=== PATIENT | female | born 1990 | race Native Hawaiian/Other Pacific Islander ===

== ENCOUNTER 2017-02-17 08:00 | Outpatient (CLI) | payer MEDICAID | END 2017-02-17 23:59 | disposition home or self-care (01) | DX: O12.13 Gestational proteinuria, third trimester (principal) ==

== ENCOUNTER 2017-06-13 21:00 | Emergency (ER) | payer MEDICAID ==
[2017-06-13] MEDS ORDERED: SODIUM CHLORIDE 0.9% 1,000 ML IV ONE (22:20)
[2017-06-13 22:41] LABS: BASOPHILS % (AUTO) 0.1 %; EOSINOPHILS # (AUTO) 0.1 10^3/uL (0.0-0.7); EOSINOPHILS % (AUTO) 1.4 %; HCT - HEMATOCRIT 35.1 % (37.0-47.0); HGB - HEMOGLOBIN 11.2 g/dL (12.0-16.0); LYMPHOCYTES # (AUTO) 1.5 10^3/uL (1.5-3.5); LYMPHOCYTES % (AUTO) 20.3 %; MEAN CORPUSCULAR HEMOGLOBIN 25.8 pg (27.0-31.0); MEAN CORPUSCULAR VOLUME 80.8 fL (81.0-99.0); MEAN PLATELET VOLUME 7.8 fL (7.9-10.8); MONOCYTES # (AUTO) 0.4 10^3/uL (0.0-1.0); MONOCYTES % (AUTO) 5.7 %; NEUTROPHILS # (AUTO) 5.5 10^3/uL (1.5-6.6); NEUTROPHILS % (AUTO) 72.5 %; RED BLOOD COUNT 4.34 10^6/uL (4.20-5.40); RED CELL DISTRIBUTION WIDTH 14.4 % (12.0-15.0); UNCORRECTED WHITE BLOOD COUNT 7.6 x10^3/uL; WHITE BLOOD COUNT 7.6 x10^3/uL (4.8-10.8)
--- NOTE | 2017-06-13 22:45 | ED Physician Documentation ---
History of Present Illness - Stated complaint Stated Complaint: FAINT/VISION ISSUES - Chief complaint Chief Complaint: General - History obtained from History obtained from: Patient - Additonal information Additional information: Patient is a 26-year-old female without any past medical history who presents with a complaint of Lightheadedness, occasional right arm pain, and numbness in her hands bilaterally. She says she often has a history of right-sided arm pain is been present for many years. She says she is otherwise healthy and has no cardiac, pulmonary gastrointestinal or other problems. There is no history of venous thromboembolism. She has not had any long car drive recently. She denies any pain in her extremities. The symptoms seem to come and go and are not associated with anything that she is aware of. She denies any feeling of anxiety or panic. She denies any lower urinary symptoms and has not had any constipation or diarrhea. She just started her menses and denies that she could be . She had a similar episode like this during where she nearly passed out. Review of systems: For pertinent positive and negatives in the review of systems please see history of present illness. Otherwise all other systems have been reviewed and are negative. Dragon disclaimer: Parts of this medical record were created using voice recognition technology. Because of the inherent limitations of this system occasional same sounding word substitutions do occur and persist despite proofreading. Please read the document for context. Review of Systems Ten Systems: 10 systems reviewed and negative Constitutional: denies: Fever, Chills, Myalgias Eyes: denies: Loss of vision, Decreased vision, Photophobia Ears: denies: Loss of hearing Cardiac: reports: Chest pain / pressure. denies: Palpitations, Pedal edema, Calf pain Respiratory: denies: Dyspnea, Cough, Hemoptysis, Wheezing GI: denies: Abdominal Pain, Abdominal Swelling, Nausea, Vomiting : denies: Dysuria, Frequency Neurologic: reports: Near syncope PD PAST MEDICAL HISTORY - Past Surgical History Past Surgical History: No - Present Medications Home Medications: Ambulatory Orders Medication Instructions Recorded Confirmed Amoxicillin 500 mg PO TID 7 Days 05/31/14 L. Rhamnosus GG/Inulin [Culturelle 1 each PO DAILY #14 cap.sprink 05/31/14 Capsule] - Allergies Allergies/Adverse Reactions: Allergies Allergy/AdvReac Type Severity Reaction Status Date / Time latex Allergy Rash Verified 05/31/14 09:45 - Social History Does the pt smoke?: Yes Smoking Status: Current every day smoker Does the pt drink ETOH?: No Does the pt have substance abuse?: No - Immunizations Immunizations are current?: Yes PD ED PE NORMAL - General General: Alert and oriented X 3, No acute distress, Well developed/nourished - HEENT HEENT: Atraumatic, PERRL, EOMI - Neck Neck: Supple, no meningeal sign - Cardiac Cardiac: RRR, No murmur, No gallop, No rub - Respiratory Respiratory: No respiratory distress, Clear bilaterally - Abdomen Abdomen: Normal bowel sounds, Soft, Non tender, Non distended - Back Back: No CVA TTP, No spinal TTP - Derm Derm: Normal color, Warm and dry, No rash, Other - Extremities Extremities: Normal ROM s pain - Neuro Neuro: Alert and oriented X 3 - Psych Psych: Normal mood, Normal affect Results - Vitals Vitals: Vital Signs - 24 hr 06/13/17 21:06 Heart Rate 81 Respiratory 14 Rate Blood Pressure 118/84 H O2 Saturation 97 Oxygen O2 Source Room air - Labs Labs: Laboratory Tests 06/13/17 06/13/17 06/13/17 21:31 22:33 22:33 WBC 7.6 RBC 4.34 Hgb 11.2 L Hct 35.1 L MCV 80.8 L MCH 25.8 L MCHC 32.0 RDW 14.4 Plt Count 227 MPV 7.8 L Neut # 5.5 Lymph # 1.5 [facility] # 0.4 Eos # 0.1 Baso # 0.0 Absolute Nucleated RBC 0.00 Nucleated RBCs 0.0 D-Dimer < 200.0 L Sodium Potassium Chloride Carbon Dioxide Anion Gap BUN Creatinine Estimated GFR (MDRD) Glucose POC Whole Bld Glucose 107 H Calcium Total Bilirubin AST ALT Alkaline Phosphatase Troponin I Total Protein Albumin Globulin Albumin/Globulin Ratio Lipase HCG, Quant Urine Color Urine Clarity Urine pH Ur Specific Alpine Urine Protein Urine Glucose (UA) Urine Ketones Urine Occult Blood Urine Nitrite Urine Bilirubin Urine Urobilinogen Ur Leukocyte Esterase Urine RBC Urine WBC Ur Squamous Epith Cells Urine Bacteria Ur Microscopic Review Urine Culture Comments 06/13/17 06/13/17 06/13/17 22:33 22:33 22:33 WBC RBC Hgb Hct MCV MCH MCHC RDW Plt Count MPV Neut # Lymph # [facility] # Eos # Baso # Absolute Nucleated RBC Nucleated RBCs D-Dimer Sodium 138 Potassium 3.5 Chloride 104 Carbon Dioxide 26 Anion Gap 8.0 BUN 10 Creatinine 0.8 Estimated GFR (MDRD) 87 L Glucose 96 POC Whole Bld Glucose Calcium 9.1 Total Bilirubin 0.6 AST 15 ALT 19 Alkaline Phosphatase 53 Troponin I < 0.04 Total Protein 7.7 Albumin 4.2 Globulin 3.5 Albumin/Globulin Ratio 1.2 Lipase 30 HCG, Quant < 0.60 Urine Color Urine Clarity Urine pH Ur Specific Alpine Urine Protein Urine Glucose (UA) Urine Ketones Urine Occult Blood Urine Nitrite Urine Bilirubin Urine Urobilinogen Ur Leukocyte Esterase Urine RBC Urine WBC Ur Squamous Epith Cells Urine Bacteria Ur Microscopic Review Urine Culture Comments 06/14/17 00:19 WBC RBC Hgb Hct MCV MCH MCHC RDW Plt Count MPV Neut # Lymph # [facility] # Eos # Baso # Absolute Nucleated RBC Nucleated RBCs D-Dimer Sodium Potassium Chloride Carbon Dioxide Anion Gap BUN Creatinine Estimated GFR (MDRD) Glucose POC Whole Bld Glucose Calcium Total Bilirubin AST ALT Alkaline Phosphatase Troponin I Total Protein Albumin Globulin Albumin/Globulin Ratio Lipase HCG, Quant Urine Color YELLOW Urine Clarity CLEAR Urine pH 5.5 Ur Specific Alpine >=1.030 H Urine Protein NEGATIVE Urine Glucose (UA) NEGATIVE Urine Ketones NEGATIVE Urine Occult Blood LARGE H Urine Nitrite NEGATIVE Urine Bilirubin NEGATIVE Urine Urobilinogen 0.2 (NORMAL) Ur Leukocyte Esterase NEGATIVE Urine RBC TNTC H Urine WBC 0-3 Ur Squamous Epith Cells NONE SEEN Urine Bacteria None Seen Ur Microscopic Review INDICATED Urine Culture Comments NOT INDICATED PD MEDICAL DECISION MAKING - ED course Complexity details: reviewed old records ED course: She is a healthy well-appearing young female who presents with right arm pain, mild dizziness, and occasional chest pain. Some of these symptoms have been present off and on for many years. She is not high risk for venous thromboembolism however we did do a d-dimer is negative so this possible diagnosis is been ruled out. Her EKG shows normal sinus rhythm with a normal ME , QRS and QT interval there is no ST elevation, depression or T-wave inversion. Patient's chest x-ray shows no acute intrathoracic disease and routine blood work was done and is normal. Her urine shows mild concentration which is treated with a liter of normal saline. At this point in time I have no clear- cut explanation for her symptoms however I think she is very low risk for ACS, PE and other simple problems have been ruled out as well. There is no evidence of referred pain into the chest from her abdomen. She is completely soft and nontender in the right upper quadrant. Disposition: To home Clinical impression: 1. Chest pain and right arm pain with dizziness-low risk ACS, ruled out for venous thromboembolism Departure - Departure Disposition: 01 Home, Self Care Clinical Impression: Chest pain in adult Condition: Good Instructions: ED Chest Pain NonCardiac Follow-Up: [facility] [Provider Group]
[2017-06-13 23:01] LABS: ALBUMIN/GLOBULIN RATIO 1.2 (1.0-2.2); BILIRUBIN,TOTAL 0.6 mg/dL (0.2-1.0); CALCIUM 9.1 mg/dL (8.5-10.3); CREATININE 0.8 mg/dL (0.4-1.0); POTASSIUM 3.5 mmol/L (3.5-5.0); TOTAL PROTEIN 7.7 g/dL (6.7-8.2)
--- NOTE | 2017-06-13 23:06 | XRAY Preliminary Report ---
Exam: XR Chest 2 View PA/LAT IMPRESSION: Stable normal appearance of the chest. [facility] SITE ID: [id number]
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
[2017-06-14 00:43] LABS: BILIRUBIN,URINE NEGATIVE (NEGATIVE); PH,URINE 5.5 PH (5.0-7.5)
[2017-06-14 00:58] LABS: UA w/ MICROSCOPIC CHARGE YES; UR CULTURE IF IND NOT INDICATED; WBC,URINE 0-3 /HPF (0-5)
[2017-06-14 01:47] VITALS: BP 122/75
== END 2017-06-14 01:46 | disposition home or self-care (01) ==
LOC: ED 21:00
DX: R07.9 Chest pain, unspecified (principal); M79.601 Pain in right arm; R42 Dizziness and giddiness; F17.200 Nicotine dependence, unspecified, uncomplicated
CPT/HCPCS: 36415; 71020; 80053; 81001; 81003; 83690; 84484; 84702; 85025; 85379; 87086; 93005; 99283; 99285

== ENCOUNTER 2018-01-07 21:50 | Outpatient (CLI) | payer MEDICAID | END 2018-01-07 21:51 | disposition critical access hospital (66) | LOC: EMS 21:50 | PROVIDERS: ATTEND Surgery | DX: S09.93XA Unspecified injury of face, initial encounter (principal); Y04.2XXA Assault by strike against or bumped into by another person, initial encounter | CPT/HCPCS: A0425; A0429 ==

== ENCOUNTER 2018-01-07 22:09 | Emergency (ER) | payer MEDICAID ==
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
--- NOTE | 2018-01-07 23:07 | CT Preliminary Report ---
Exam: CT HEAD W/O IMPRESSION: 1. No acute intracranial process. 2. Small left temporal scalp hematoma without calvarial fracture. [facility] SITE ID: [id number]
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
--- NOTE | 2018-01-07 23:11 | CT Preliminary Report ---
Exam: CT FACIAL BONES W/O IMPRESSION: No acute facial bone fracture. [facility] SITE ID: [id number]
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
[2018-01-07 23:27] VITALS: BP 106/63
== END 2018-01-07 23:28 | disposition home or self-care (01) ==
LOC: EDUNIT# → ED 22:09
DX: S00.81XA Abrasion of other part of head, initial encounter (principal); S60.222A Contusion of left hand, initial encounter; S60.221A Contusion of right hand, initial encounter; Y04.2XXA Assault by strike against or bumped into by another person, initial encounter; Y92.009 Unspecified place in unspecified non-institutional (private) residence as the place of occurrence of the external cause; F17.200 Nicotine dependence, unspecified, uncomplicated
CPT/HCPCS: 70450; 70486; 99283; 99284

== ENCOUNTER 2019-08-08 20:24 | Emergency (ER) | payer MEDICAID ==
[2019-08-08 20:32] VITALS: BP 130/78
--- NOTE | 2019-08-08 20:36 | ED Physician Documentation ---
PD HPI HEENT - Stated complaint Stated Complaint: POST ROOT CANAL PX - Chief complaint Chief Complaint: Heent - History obtained from History obtained from: Patient - History of Present Illness Timing - onset: How many weeks ago (1) Timing - duration: Weeks (1) Timing - details: Gradual onset, Still present Location: Tooth Improves: No: Medication (She was seen for an infected root canal that had a temporary filling. It was redrilled and temporary filling placed. She was put on amoxicillin antibiotic. She states she has not had any improvement in the swelling or pain. She is using ibuprofen and Tylenol.) Associated symptoms: Facial swelling (left mandible area locally). No: Fever Recently seen: Clinic (dentist) Review of Systems Constitutional: denies: Fever, Chills, Myalgias Throat: denies: Sore throat Cardiac: denies: Chest pain / pressure PD PAST MEDICAL HISTORY - Past Medical History Past Medical History: No Psych: Depression, Anxiety - Past Surgical History Past Surgical History: No - Present Medications Home Medications: Ambulatory Orders Medication Instructions Recorded Confirmed RX: Amoxicillin 500 mg PO TID 08/08/19 08/08/19 RX: Clindamycin HCl [Clindamycin 300 mg PO TID #21 capsule 08/08/19 300MG CAP] - Allergies Allergies/Adverse Reactions: Allergies Allergy/AdvReac Type Severity Reaction Status Date / Time latex Allergy Rash Verified 08/08/19 20:31 - Social History Does the pt smoke?: Yes Smoking Status: Current every day smoker Does the pt drink ETOH?: No Does the pt have substance abuse?: No - Immunizations Immunizations are current?: Yes - POLST Patient has POLST: No PD ED PE NORMAL - Vitals Vital signs reviewed: Yes - General General: Alert and oriented X 3, No acute distress, Well developed/nourished - HEENT HEENT: Pharynx benign. No: Dentition benign (Most of her teeth are fine. The lower first molar shows a temporary filling in place. There is a local swelling without fluctuance of the gum. There is no adenopathy noted.) Results - Vitals Vitals: Vital Signs - 24 hr 08/08/19 20:28 Temperature 36.1 C L Heart Rate 65 Respiratory 14 Rate Blood Pressure 130/78 O2 Saturation 100 Oxygen O2 Source Room air PD MEDICAL DECISION MAKING - ED course Complexity details: considered differential (Seems like a persistent local infection in the base of the tooth. We will switch her from amoxicillin to clindamycin. She declined any pain medicines.), d/w patient Departure - Departure Disposition: 01 Home, Self Care Clinical Impression: Dental infection Condition: Stable Record reviewed to determine appropriate education?: Yes Prescriptions: RX: Clindamycin HCl [Clindamycin 300MG CAP] 300 mg PO TID #21 capsule Comments: Stay well-hydrated. Stop the amoxicillin. Change to clindamycin 3 times a day for a week. Continue Tylenol every 4-6 hours if needed for pains. Consider adding ibuprofen or naproxen twice daily as well for pain and inflammation. Follow-up with the dentist on the as planned. Return sooner if worsening. Discharge Date/Time: 08/08/19 20:53
[2019-08-08] MEDS ORDERED: DEXAMETHASONE 10 MG/ML VIAL PO STA (20:43)
[2019-08-08] MEDS ORDERED: CHERRY SYRUP 10 ML UDC PO ONE (20:43)
[2019-08-08] MEDS ORDERED: CLINDAMYCIN 150 MG CAPSULE PO STA (20:43)
== END 2019-08-08 20:53 | disposition home or self-care (01) ==
LOC: ED 20:24
DX: K04.7 Periapical abscess without sinus (principal); F17.200 Nicotine dependence, unspecified, uncomplicated
CPT/HCPCS: 99282; 99283; A9270

== ENCOUNTER 2020-02-08 09:05 | Outpatient (CLI) | payer OTHER | END 2020-02-08 09:06 | disposition home or self-care (01) | LOC: DI 09:05 | PROVIDERS: ATTEND Nurse Practitioner Family | DX: I51.7 Cardiomegaly (principal) | CPT/HCPCS: 93306 ==

== ENCOUNTER 2020-02-15 11:38 | Emergency (ER) | payer OTHER ==
[2020-02-15 11:49] VITALS: BP 126/64
--- NOTE | 2020-02-15 12:18 | ED Physician Documentation ---
History of Present Illness - Stated complaint Stated Complaint: FLU LIKE SYMPTOMS - Chief complaint Chief Complaint: Resp - History obtained from History obtained from: Patient - History of Present Illness Timing: Last night Pain level max: 4 Pain level now: 3 - Additonal information Additional information: Patient states that she started have a fever and body aches last night. Has an 8-year-old son who tested positive for influenza A on Tuesday. She is also having a dry cough. No vomiting. No abdominal pain. Nothing makes it better or worse. She is not , breast-feeding or trying to become . Patient did not get her flu shot this year Review of Systems Ten Systems: 10 systems reviewed and negative Constitutional: reports: Fever Ears: denies: Ear pain Throat: reports: Sore throat Respiratory: reports: Cough GI: denies: Abdominal Pain, Abdominal Swelling, Nausea, Vomiting, Diarrhea : denies: Dysuria, Frequency, Hesitancy, Now EGA Skin: denies: Rash Musculoskeletal: denies: Neck pain, Back pain Neurologic: denies: Headache PD PAST MEDICAL HISTORY - Past Medical History Past Medical History: Yes Cardiovascular: Other Psych: Depression, Anxiety Other Past Medical History: "slow heart rate" - Past Surgical History Past Surgical History: No - Allergies Allergies/Adverse Reactions: Allergies Allergy/AdvReac Type Severity Reaction Status Date / Time latex Allergy Rash Verified 02/15/20 11:49 - Social History Does the pt smoke?: Yes Smoking Status: Current every day smoker Does the pt drink ETOH?: No Does the pt have substance abuse?: No - Immunizations Immunizations are current?: Yes - POLST Patient has POLST: No PD ED PE NORMAL - Vitals Vital signs reviewed: Yes - General General: Alert and oriented X 3, No acute distress, Well developed/nourished - HEENT HEENT: PERRL, Ears normal, Moist mucous membranes, Pharynx benign - Neck Neck: Supple, no meningeal sign, No adenopathy - Cardiac Cardiac: RRR, Strong equal pulses - Respiratory Respiratory: No respiratory distress, Clear bilaterally - Abdomen Abdomen: Soft, Non tender, Non distended - Derm Derm: Warm and dry, No rash - Neuro Neuro: Alert and oriented X 3 - Psych Psych: Normal mood, Normal affect Results - Vitals Vitals: Vital Signs - 24 hr 02/15/20 11:47 Temperature 39.2 C H Heart Rate 86 Respiratory 18 Rate Blood Pressure 126/64 O2 Saturation 97 Oxygen O2 Source Room air PD MEDICAL DECISION MAKING - ED course Complexity details: considered differential, d/w patient ED course: Patient is well-appearing, nontoxic. She does have a fever consistent with influenza A. We will not re-swab as her son is already positive. We will continue supportive care and have her follow-up with her doctor. No evidence of secondary infection. We discussed risks and benefits of Tamiflu, she declines at this time and I think this is reasonable in her case. Patient counseled regarding signs and symptoms for which I believe and urgent re-evaluation would be necessary. Patient with good understanding of and agreement to plan and is comfortable going home at this time This document was made in part using voice recognition software. While efforts are made to proofread this document, sound alike and grammatical errors may occur. Departure - Departure Disposition: 01 Home, Self Care Clinical Impression: Influenza A Condition: Good Instructions: ED Flu Follow-Up: JOSI RAMIRES, MSN, [employer] [Primary Care Provider] - As Needed Comments: Return if you worsen. Follow-up with your doctor as needed for further care. Drink plenty of fluids and rest. You can use Motrin or Tylenol as needed for fevers.
== END 2020-02-15 12:24 | disposition home or self-care (01) ==
LOC: ED 11:38
DX: J10.1 Influenza due to other identified influenza virus with other respiratory manifestations (principal); F17.210 Nicotine dependence, cigarettes, uncomplicated
CPT/HCPCS: 99281; 99282